=== PATIENT | female | born 1995 | race Caucasian/White ===

== ENCOUNTER 2025-05-18 09:30 | Emergency (ER) | payer MEDICAID ==
[~2025-05-18] VITALS: Ht 162.6 cm; Wt 83.9 kg
[2025-05-18 09:31] VITALS: O2SAT 99
[2025-05-18 10:09] LABS: CLARITY URINE CLOUDY (CLEAR); COLOR URINE YELLOW (YELLOW); GLUCOSE URINE NEGATIVE (NEGATIVE); KETONES URINE TRACE (NEGATIVE); LEUKOCYTE ESTERASE URINE TRACE (NEGATIVE); NITRITE URINE NEGATIVE (NEGATIVE); OCCULT BLOOD URINE NEGATIVE (NEGATIVE); PH URINE 5.5 (4.5-8.0); PROTEIN URINE TRACE (NEGATIVE); SPECIFIC GRAVITY URINE 1.026 (1.005-1.030); UROBILINOGEN URINE 0.2 E.U./dL (0.2-1.0)
[2025-05-18] MEDS: IBUPROFEN 600MG TABLET PO ONE (10:22)
[2025-05-18 10:38] LABS: BASOPHILS % 0.5 % (0.0-2.0); EOSINOPHILS % 1.8 % (0.0-5.0); HEMATOCRIT. 37.8 % (36.0-48.0); HEMOGLOBIN. 12.1 g/dL (12.0-16.0); LYMPHOCYTES % 20.2 % (20.0-50.0); MEAN PLATELET VOLUME 7.9 fl (7.4-10.4); MONOCYTES % 4.5 % (2.0-8.0); NEUTROPHILS % 73.0 % (40.0-76.0); PLATELET 375 x1000/uL (130-400); RED BLOOD CELL COUNT 4.51 mill/uL (4.2-5.4); RED CELL DISTRIBUTION WIDTH 15.5 % (11.6-14.6)
[2025-05-18 10:39] LABS: MUCUS URINE 2+ /lpf (< = 2+); RBC URINE NONE SEEN /hpf (0-2); SQUAMOUS EPITHELIAL CELL URINE 2+ /lpf (RARE/1+); WBC URINE 0-2 /hpf (0-2)
[2025-05-18 10:41] LABS: BACTERIA URINE TRACE
[2025-05-18 10:51] LABS: CREATININE 0.8 mg/dL (0.6-1.0)
[2025-05-18 10:52] LABS: TROPONIN I HIGH SENSITIVITY 11 ng/L (3.0-34); UREA NITROGEN BLOOD 9 mg/dL (9-23)
[2025-05-18 10:53] LABS: ASPARTATE AMINOTRANSFERASE 13 IU/L (<34)
[2025-05-18 10:54] LABS: BILIRUBIN DIRECT 0.1 mg/dL (<=3.0); BILIRUBIN TOTAL 0.6 mg/dL (0.1-1.0); PROTEIN TOTAL 7.6 g/dL (6.0-8.3)
[2025-05-18 13:03] LABS: TROPONIN I HIGH SENSITIVITY 12 ng/L (3.0-34)
[2025-05-18] MEDS ORDERED: NAPR220C61 MT (13:46)
[2025-05-18 14:01] VITALS: BP 150/83; PULSE 64; RESP 17; TEMP 36.6; O2SAT 99
== END 2025-05-18 14:03 | disposition home or self-care (01) ==
LOC: ER 09:30
DX: R07.89 Other chest pain (principal); Z79.899 Other long term (current) drug therapy
CPT/HCPCS: 36415; 71045; 80048; 80076; 81003; 81025; 84484; 85025; 93005; 99285